=== PATIENT | female | born 1965 | race Two or more races ===

== ENCOUNTER 2025-02-28 07:06 | Emergency (ER) | payer MEDICAID, SELFPAY ==
[2025-02-28 07:13] VITALS: BP 120/73; PULSE 58; RESP 19; TEMP 36.5; O2SAT 99
[2025-02-28 07:15] VITALS: BMI 21.2
--- NOTE | 2025-02-28 07:30 | PD.EDRME ---
Rapid Medical Screening Exam E Arrival date/time: 02/28/25 07:06 This is a 59-year-old female that is brought in by with complaints of chest pain that started early this morning. Patient states it woke her up out of her sleep. Patient reports having palpitations. Patient was recently seen by primary provider and was told that she had low heart rate. Patient being worked up by primary provider per patient. Patient also complains of dizziness and shortness of breath. Patient reports that her chest pain radiates down her left arm and she has numbness and tingling to the left arm. Patient has a history of pre-diabetes and hyperlipidemia. Patient denies any nausea vomiting. Patient denies any urinary symptoms. I have greeted and performed a focused initial assessment of this patient. Initial appropriate labs ordered at this time. A comprehensive ED assessment and evaluation of the patient and analysis of all test and completion of medical decision making process will be conducted by additional ED provider. Time Seen by Provider: 02/28/25 07:22 Vital signs: Vital Signs Temperature 97.7 F 02/28/25 07:13 Pulse Rate 58 L 02/28/25 07:13 Respiratory Rate 19 02/28/25 07:13 Blood Pressure 120/73 02/28/25 07:13 Pulse Oximetry (%) 99 02/28/25 07:13 Oxygen Delivery Method Room Air 02/28/25 07:13
--- NOTE | 2025-02-28 07:33 | XR_ITS ---
Exam: Chest PA, lateral 2 views Technique: Chest upright PA lateral 2 views Date and time of exam: 02/28/2025, 7:44 AM INDICATION: Chest pain COMPARISON: 11/13/2006 Findings: Normal heart size. No mediastinal adenopathy. No acute fracture No pulmonary edema or pneumonia. Impression: No active disease.
--- NOTE | 2025-02-28 07:33 | EKG_ITS ---
[facility] Test Date: 2025-02-28 Pat Name: SRINIVASAN HERZOG Department: Room: - Gender: Female [employer] Office Manager: : 1965 Requested By: Kristen Sky Order Number: [id number] Reading MD: Kristen Sky Measurements Intervals [place] Rate: 54 P: 50 [place]: 153 QRS: 69 QRSD: 92 T: 66 QT: 427 QTc: 406 Interpretive Statements SINUS BRADYCARDIA No previous ECG available for comparison /store/S0/[id number].pdf
[2025-02-28 08:14] LABS: Basophils % (Auto) 1 % (0-2.5); Eosinophils # (Auto) 0.1 Thou/mm3 (0.0-0.5); Eosinophils % (Auto) 3 % (0-10); Hematocrit 38.6 % (36.0-46.0); Hemoglobin 12.7 g/dL (12.0-16.0); Immature Granulocytes % (Auto) 0 % (0-0); Lymphocytes # (Auto) 1.5 Thou/mm3 (1.0-4.8); Lymphocytes % (Auto) 35 % (10-50); Mean Corpuscular HGB Conc 32.9 g/dl (31.0-37.0); Mean Corpuscular Hemoglobin 28.9 pg (25.0-35.0); Mean Corpuscular Volume 88 fL (80-100); Monocytes # (Auto) 0.4 Thou/mm3 (0.0-0.8); Monocytes % (Auto) 9 % (0-12); Neutrophils # (Auto) 2.3 Thou/mm3 (1.8-7.7); Neutrophils % (Auto) 53 % (37-80); Nucleated Red Blood Cell % 0 /100 WBC (0); Platelet Count 187 Thou/mm3 (140-440); RDW Standard Deviation 41.6 fL (36.4-46.3); Red Blood Count 4.39 Miln/mm3 (4.00-5.20); White Blood Count 4.4 Thou/mm3 (3.6-11.0)
[2025-02-28 08:27] LABS: B-Type Natriuretic Peptide 20 pg/mL (0-100)
[2025-02-28 08:31] LABS: Alanine Aminotransferase 16 U/L (10-49); Albumin, Serum 4.6 gm/dL (3.5-5.0); Albumin/Globulin Ratio 1.5 (1.2-2.2); Alkaline Phosphatase 85 U/L (46-116); Anion Gap 7 (7-16); Aspartate Amino Transferase 22 U/L (0-34); BUN/Creatinine Ratio 15 Ratio (12-20); Bilirubin,Total 0.9 mg/dL (0.3-1.2); Blood Urea Nitrogen 12 mg/dL (9-23); Calcium 9.7 mg/dL (8.3-10.6); Calcium (Corrected) 9.7 mg/dL (8.5-10.1); Carbon Dioxide 29.5 mMol/L (20.0-31.0); Chloride 106 mMol/L (98-107); Creatinine (Component) 0.8 mg/dL (0.6-1.3); Globulin 3.1 gm/dL (2.3-3.5); Glucose 104 mg/dL (74-106); Osmolality,Calculated 282 (275-295); Potassium 3.8 mMol/L (3.4-5.1); Sodium 142 mMol/L (136-145); Thyroid Stimulating Hormone 1.22 uIU/mL (0.55-4.78); Total Protein 7.7 gm/dL (5.7-8.2); Troponin I < 0.002 ng/mL (0.0-0.045); eGFR > 60 See Note
[2025-02-28 10:09] VITALS: BP 140/60; PULSE 57; RESP 19; TEMP 37.1; O2SAT 100
--- NOTE | 2025-02-28 10:58 | PD.EDCHEST ---
ED Chest Pain RME/HPI General Chief Complaint: Chest Pain Stated Complaint: CHEST PAIN, LEFT ARM TINGLING Time Seen by Provider: 02/28/25 07:22 Arrival date/time: 02/28/25 07:06 RME / HPI RME / HPI narrative: 02/28/25 07:06 This is a 59-year-old female that is brought in by with complaints of chest pain that started early this morning. Patient states it woke her up out of her sleep. Patient reports having palpitations. Patient was recently seen by primary provider and was told that she had low heart rate. Patient being worked up by primary provider per patient. Patient also complains of dizziness and shortness of breath. Patient reports that her chest pain radiates down her left arm and she has numbness and tingling to the left arm. Patient has a history of pre-diabetes and hyperlipidemia. Patient denies any nausea vomiting. Patient denies any urinary symptoms. I have greeted and performed a focused initial assessment of this patient. Initial appropriate labs ordered at this time. A comprehensive ED assessment and evaluation of the patient and analysis of all test and completion of medical decision making process will be conducted by additional ED provider. DR WESTBROOK MAIN ED EVALUATION: 59 year old female with history of pre-diabetes and hyperlipidema presented to the ER companied by with a chief complaint of chest pain traveling down to the left arm. Patient reports that her pain and palpitations woke her up from her sleep at 04:00 AM. Per patient, the patient is located deep inside her chest that is not exacerbated by movements or taking a deep breath. Patient denies any known heart history. Patient denies cough and fever. Related Data Allergies Allergy/AdvReac Type Severity Reaction Status Date / Time lidocaine Allergy Severe Swelling Verified 02/19/24 10:19 of Lip/Tongue/Throat NKA Allergy Unknown Uncoded 06/25/03 17:37 No Known Allergies Allergy Unknown Uncoded 07/27/04 08:22 Review of Systems Review of Systems Systems Reviewed: All systems reviewed, normal except as documented Narrative Review of Systems: Gen: No fever, no chills, no weight loss EYES: No discharge, no visual changes, no pain HEENT: No ear pain, no congestion, no sore throat PULM: + shortness of breath, no cough, no congestion CV: +chest pain, no dyspnea on exertion, +palpitations GI: No nausea, no vomiting, no diarrhea, no pain, no constipation : No frequency, no urgency, no dysuria Musc/skel: + pain in left arm, No joint pain, no back pain Skin: No rash Psyc: No hallucinations, no depression Heme/Lymph: No easy bleeding or bruising tendencies Neuro: No weakness, no headache Past Medical History Past Medical History CARDIAC: Negative Congestive Heart Failure RESPIRATORY: Negative Chronic Obstructive Pulmonary Disease (COPD) GENITOURINARY: Negative Renal Disease ENDOCRINE: Negative Diabetes Mellitus Type 1 or Diabetes Mellitus Type 2 (Pre-diabetic) Social History SMOKING STATUS: Never smoker ED Exam Narrative Physical exam: GENERAL APPEARANCE: alert and oriented x 4, well-developed, well-nourished, no acute distress HEENT: Normocephalic, atraumatic; pupils equal, round, reactive to light; EOMI; mucous membranes pink, moist; oropharynx clear NECK: Supple LUNGS: CTABL; no wheezes, no rales, no rhonchi HEART: Regular rate, regular rhythm; normal S1, S2; no murmurs ABDOMEN: non distended; normal BS; soft, no tenderness, no guarding, no rebound; no masses, no organomegaly, no hernia BACK: no CVA tenderness EXTREMITIES: atraumatic; no edema NEUROLOGIC: awake; alert and oriented x4; cranial nerves II-XII grossly intact; no focal sensory or motor deficits PSYCHIATRIC: appropriate mood and affect SKIN: warm, dry, normal color; no rashes Course Quality Measures none Orders Category Date Time Status EKG (ED ONLY) *Do not use* NOW Care 02/28/25 07:33 Completed EKG (ED Only) Stat Exams 02/28/25 07:33 Draft XR chest 2V Stat Exams 02/28/25 07:33 Completed BNP [B-Type Natriuretic Peptide] Stat Lab 02/28/25 07:47 Completed CBC Stat Lab 02/28/25 07:47 Completed Comprehensive Metabolic Panel Stat Lab 02/28/25 07:47 Completed Magnesium Stat Lab 02/28/25 07:47 Completed TSH [Thyroid Stimulating Hormone] Stat Lab 02/28/25 07:47 Completed Troponin I Stat Lab 02/28/25 07:47 Completed Troponin I Stat Lab 02/28/25 11:45 Completed Aspirin Chew Med 02/28/25 10:56 Discontinued 324 mg PO X1 ONE Vital Signs Vital signs: Vital Signs Temperature 97.7 F 02/28/25 07:13 Pulse Rate 58 L 02/28/25 07:13 Respiratory Rate 19 02/28/25 07:13 Blood Pressure 120/73 02/28/25 07:13 Pulse Oximetry (%) 99 02/28/25 07:13 Oxygen Delivery Method Room Air 02/28/25 07:13 Pulse ox is 99% on room air which is adequate. Chest Pain MDM Narrative MDM Narrative:: Nini Miguel am scribing for and in the presence of Dr. Westbrook Patient data External records reviewed:: [facility] previous records Clinical information provided by:: patient Social determinants that could affect healthcare access:: none Patient has the following chronic illnesses:: pre-diabetes and hyperlipidema How is presenting disease/condition affected by chronic disease/condition?: exacerbated by Evaluation data The following diagnostics were reviewed and interpreted by me:: lab results, radiology exam(s) and EKG tracing(s) (EKG#1: EKG at 0737 hours.Interpreted by me: bradycardia rhythm, rate 54, no acute ischemic changes) Lab and/or radiology exams considered but not ordered:: none Interpretation Summary: Ordering Physician: Kristen Sky NP Date of Service: 02/28/25 Procedure(s): XR chest 2V Accession Number(s): [id number] cc: Marlon Callaway MD; Unique Gómez (ARIACHL); Kristen Sky NP~ Exam: Chest PA, lateral 2 views Technique: Chest upright PA lateral 2 views Date and time of exam: 02/28/2025, 7:44 AM INDICATION: Chest pain COMPARISON: 11/13/2006 Findings: Normal heart size. No mediastinal adenopathy. No acute fracture No pulmonary edema or pneumonia. Impression: No active disease. Dictated By: Marlon Callaway MD Signed By: <Electronically signed by Marlon Callaway MD in OV> 02/28/25804 Medications / Prescriptions Medications or Prescriptions considered but not ordered:: none Medication administrations:: Medication Administration History Discontinued Medications Aspirin (Aspirin 81 Mg Chew) 324 mg PO X1 ONE Stop: 02/28/25 10:57 Last Admin: 02/28/25 11:50 Dose: 324 mg Documented By: LA[place] see above Consultations Consultation(s) initiated? (list below): No Diagnosis Chest Pain Differential Diagnosis: stable angina, atypical chest pain, st elevation myocardial infarction, costochondritis, chest pain and biliary colic Most likely diagnosis given after review of the tests above:: chest pain Admission Indicated Admission indicated?: not indicated Admission Request Was there a request for admission?: No Disposition Plan Disposition Plan: Discharge Discharge Attestation Discharge Attestation: The patient and all family members were given an opportunity to ask questions and understood the discharge instructions. Discharge instructions specifically effects, indications for sooner follow up or return to the emergency department, and the expected course of current diagnosis. Patient condition: Stable Discharge Plan Plan Patient Disposition: HOME (Self Care) Prescriptions/Referrals Referrals: Unique Gómez FNP (ARIACHL) [Primary Care Provider] - In 1 week Problem List Clinical Impression: Chest pain Patient/Caregiver Discharge Instructions Discharge Activity: activity as tolerated Education Materials: ED Chest Pain, Uncertain Cause Print Language: Cymraes Stand Alone Forms: Selene Award Info., Patient Portal Info Letter
[2025-02-28] MEDS: ASPIRIN 81 MG CHEW 324 MG PO (11:50)
[2025-02-28 12:18] LABS: Troponin I < 0.002 ng/mL (0.0-0.045)
[2025-02-28 12:33] VITALS: BP 109/69; PULSE 59; RESP 18; TEMP 36.5; O2SAT 100
[2025-02-28 13:55] VITALS: BP 114/60; PULSE 58; RESP 18; TEMP 36.4; O2SAT 100
== END 2025-02-28 14:55 | disposition home or self-care (01) ==
PROVIDERS: Nurse Practitioner Family; Emergency Provider Emergency Medicine; PCP Nurse Practitioner Primary Care
DX: R07.9 Chest pain, unspecified (principal); R00.2 Palpitations; R42 Dizziness and giddiness; R06.02 Shortness of breath; E78.5 Hyperlipidemia, unspecified; R20.0 Anesthesia of skin; R20.2 Paresthesia of skin
CPT/HCPCS: 36415; 71046; 80053; 83735; 83880; 84443; 84484; 85025; 93005; 99283; A9270